=== PATIENT | female | born 1970 | race Caucasian/White ===

== ENCOUNTER 2016-09-13 20:42 | Inpatient (IN) | payer OTHER ==
[~2016-09-13] VITALS: Ht 167.6 cm; Wt 89.8 kg
[2016-09-13 20:55] VITALS: BP 149/90
--- NOTE | 2016-09-13 21:07 | NUR ---
45 Y/O F BIBA W/C/O CHEST PAIN WHICH RADIATES TO BACK AND L ARM X TODAY AT 1800. PER EMT ASPIRING 325MG AND NITRO 0.4 MG GIVEN SUBLINGUAL IN ROUTE X 1 AT 2034.DENIES ANY SOB. PT STATES HER PAIN IMPROVED TO A 2/10. MED HTN. NO S/S OF DISTRESS NOTED. PT ON INDUSTRIAL TRUCK OPERATOR, VSS. ER MD MADE AWARE.
--- NOTE | 2016-09-13 21:09 | NUR ---
Francesca khoury in ED - 09/14/16 at 0017 by MEDJANIE BIBA TO ER BED 4
[2016-09-13] MEDS ORDERED: NITROGLYCERIN 2% 1 GM PKT TP ONE (21:25)
[2016-09-13 21:58] LABS: BASOPHILS # (AUTO) 0.2 K/uL (0.00-0.22); BASOPHILS % (AUTO) 1.5 % (0.0-2.0); EOSINOPHILS # (AUTO) 0.3 K/uL (0-0.4); EOSINOPHILS % (AUTO) 2.4 % (0.0-4.0); HEMATOCRIT 37.5 % (36-48); MEAN CORPUSCULAR HEMOGLOBIN 26 pg (27-31); MEAN CORPUSCULAR HGB CONC 32 g/dL (33-37); MEAN CORPUSCULAR VOLUME 81 fL (80-94); MONOCYTES # (AUTO) 0.9 K/uL (0.8-1.0); MONOCYTES % (AUTO) 7.5 % (1.7-9.3); NEUTROPHILS # (AUTO) 8.2 K/uL (1.8-7.7); NEUTROPHILS % (AUTO) 64.6 % (42.2-75.2); PLATELET COUNT (AUTO) 270 K/uL (140-450); RED BLOOD CELL COUNT(AUTO) 4.65 MIL/uL (4.20-5.40); RED CELL DISTRIBUTION WIDTH 13.9 % (11.6-13.7); WHITE BLOOD COUNT (AUTO) 12.6 K/uL (4.8-10.8)
[2016-09-13 22:07] LABS: ANION GAP 12.1 (8-16); CALCIUM 8.5 mg/dL (8.5-10.1); CARBON DIOXIDE 26.4 mmol/L (21-32); CREATININE 0.6 mg/dL (0.6-1.3); POTASSIUM 3.5 mmol/L (3.5-5.1)
[2016-09-13 22:12] LABS: ALBUMIN 3.6 g/dL (3.4-5.0); TOTAL BILIRUBIN 0.2 mg/dL (0.0-1.0); TOTAL PROTEIN, SERUM 7.3 g/dL (6.4-8.2)
[2016-09-13 22:17] LABS: CHOL/HDL RATIO 3.1 (1-4.5)
[2016-09-13 22:21] LABS: CREATINE KINASE MB 1.9 ng/mL (0-3.6); CREATINE KINASE, TOTAL 139 U/L (26-192); TROPONIN I < 0.017 ng/mL (0.00-0.06)
[2016-09-13] MEDS ORDERED: ACETAMINOPHEN 325 MG TAB PO PRN (23:10)
[2016-09-13] MEDS ORDERED: ONDANSETRON 4 MG/2 ML VIAL IVP PRN (23:10)
[2016-09-13] MEDS ORDERED: ZOLPIDEM 5 MG TAB PO PRN (23:10)
[2016-09-13] MEDS ORDERED: NITROGLYCERIN 0.4 MG TAB SL PRN (23:10)
[2016-09-13] MEDS ORDERED: LORazepam 1 MG TAB PO PRN (23:10)
--- NOTE | 2016-09-13 23:48 | NUR ---
Patient will be admitted to care of DR QUICK. Admited to TELEMETRY. Will go to [id number]. Belongings list completed. Report to KONRAD SANTILLAN
[2016-09-14] MEDS ORDERED: MORPHINE SULFATE 4 MG/ML SYR IVP ONE
--- NOTE | 2016-09-14 00:10 | NUR ---
PT TRASFERRED TO TELEMETRY BY REHANA RN, AND CAMPBELL EMT. NO S/S OF DISTRESS NOTED ON TRASFER.
--- NOTE | 2016-09-14 00:20 | NUR ---
ADMITTED THIS 45 YEAR OLD FEMALE FROM ER PER TRACIE WITH CC OF CHEST PAIN, AMBULATORY TO BED WITH STEADY GAIT, VITAL SIGNS STABLE, DENIES CHEST PAIN BUT WITH TOLERABLE HEADACHE 4/10, NO SOB NOTED, ASSESSMENT DONE, ORIENTED TO ROOM AND CALL LIGHT, SKIN IS INTACT, PLAN OF CARE DISCUSSED WITH PT, SAFETY MEASURES IN PLACE, CALL LIGHT WITHIN REACH.
[2016-09-14 00:30] VITALS: BP 127/76
--- NOTE | 2016-09-14 01:00 | NUR ---
SANDWICH PROVIDED, TOLERATED WELL, ALL NEEDS ATTENDED.
[2016-09-14] MEDS: MORPHINE SULFATE 2 MG/ML SYR IVP PRN ×2 (03:56→06:39)
[2016-09-14 04:00] VITALS: BP 125/69
--- NOTE | 2016-09-14 04:00 | NUR ---
PT COMPLAINING OF CHEST PAIN, VITAL SIGNS STABLE, MEDICATED PRN FOR PAIN, MONITORED CLOSELY.
[2016-09-14 06:19] LABS: BASOPHILS # (AUTO) 0.1 K/uL (0.00-0.22); BASOPHILS % (AUTO) 0.7 % (0.0-2.0); EOSINOPHILS # (AUTO) 0.2 K/uL (0-0.4); EOSINOPHILS % (AUTO) 1.5 % (0.0-4.0); HEMATOCRIT 37.1 % (36-48); HEMOGLOBIN 12.4 g/dL (12.0-16.0); LYMPHOCYTES # (AUTO) 2.2 K/uL (2.5-16.5); LYMPHOCYTES % (AUTO) 21.8 % (20.5-51.1); MEAN CORPUSCULAR HEMOGLOBIN 27 pg (27-31); MEAN CORPUSCULAR HGB CONC 33 g/dL (33-37); MEAN CORPUSCULAR VOLUME 80 fL (80-94); MONOCYTES # (AUTO) 0.9 K/uL (0.8-1.0); MONOCYTES % (AUTO) 9.4 % (1.7-9.3); NEUTROPHILS # (AUTO) 6.6 K/uL (1.8-7.7); NEUTROPHILS % (AUTO) 66.6 % (42.2-75.2); PLATELET COUNT (AUTO) 268 K/uL (140-450); RED BLOOD CELL COUNT(AUTO) 4.65 MIL/uL (4.20-5.40)
[2016-09-14 06:37] LABS: ANION GAP 12.2 (8-16); CALCIUM 8.2 mg/dL (8.5-10.1); CARBON DIOXIDE 26.2 mmol/L (21-32); CREATININE 0.6 mg/dL (0.6-1.3); POTASSIUM 3.4 mmol/L (3.5-5.1)
--- NOTE | 2016-09-14 06:45 | NUR ---
MEDICATED FOR PAIN PRN, NO SOB NOTED, FOR ECHOCARDIOGRAM TODAY, AWAITING DR Hazel STYLES FOR CARDIAC CONSULT, PT MONITORED CLOSELY.
--- NOTE | 2016-09-14 07:10 | NUR ---
PT SLEEPING, EASILY AROUSABLE, NO SIGNS OF DISTRESS, REPORT GIVEN TO SANTI RN FOR CONTINUITY OF CARE.
--- NOTE | 2016-09-14 07:10 | NUR ---
RECEIVED REPORT FROM NIGHT NURSE. PT IS AAOX4, ON ROOM AIR, IV TO LEFT HAND 20G SALINE LOCK. PATENT AND INTACT. SKIN INTACT, PT STATES NO CHEST PAIN AT THIS TIME. INITIAL ASSESSMENT COMPLETED, REVIEWED PLAN OF CARE WITH PT, PT VERBALIZED UNDERSTANDING, ALL SAFETY PRECAUTIONS MET, ALL NEEDS MET. CALL LIGHT WITHIN REACH. WILL CONTINUE TO MONITOR.
[2016-09-14 07:17] LABS: CREATINE KINASE MB 1.5 ng/mL (0-3.6)
[2016-09-14 08:00] VITALS: BP 134/84
--- NOTE | 2016-09-14 08:33 | NUR ---
PATIENT HAS BEEN SCREENED AND CATEGORIZED MODERATE NUTRITION RISK. PATIENT WILL BE SEEN WITHIN 3-5 DAYS OF ADMISSION. 09/15/16-09/17/[address]
[2016-09-14] MEDS: ASPIRIN 81 MG TAB.CHEW PO SCH (09:50)
[2016-09-14] MEDS: METOPROLOL 25 MG TAB PO SCH ×2 (09:51→20:49)
--- NOTE | 2016-09-14 09:51 | NUR ---
DUE MEDICATIONS GIVEN, PT TOLERATED WELL. PT CURRENTLY EATING BREAKFAST, ALL NEEDS MET. CALL LIGHT WITHIN REACH. WILL CONTINUE TO MONITOR.
[2016-09-14] MEDS: ENOXAPARIN 40 MG/0.4 ML SYR SUBQ SCH (09:54)
[2016-09-14 11:59] VITALS: BP 140/82
[2016-09-14] MEDS ORDERED: POTASSIUM CHLORIDE 10 MEQ TABER PO SCH (12:25)
[2016-09-14 13:19] LABS: CREATINE KINASE MB 1.1 ng/mL (0-3.6)
--- NOTE | 2016-09-14 14:20 | NUR ---
CHECKED IN ON PT, PT CURRENTLY RESTING IN BED ALL NEEDS MET. CALL LIGHT WITHIN REACH. WILL CONTINUE TO MONITOR.
--- NOTE | 2016-09-14 14:37 | NUR ---
FAXED INITIAL REVIEW TO [facility] [phone] PHONE JOHNSON [phone]
[2016-09-14 16:00] VITALS: BP 131/96
[2016-09-14] MEDS: CYCLOBENZAPRINE 10 MG TAB PO SCH (17:15)
--- NOTE | 2016-09-14 17:15 | NUR ---
DUE MEDICATIONS GIVEN, PT CURRENTLY SIDING AT BEDSIDE. ALL NEEDS MET. CALL LIGHT WITHIN REACH.
--- NOTE | 2016-09-14 19:27 | NUR ---
ENDORSED PLAN OF CARE TO NIGHT NURSE,PT IN STABLE CONDITION.
--- NOTE | 2016-09-14 19:30 | NUR ---
RECEIVED PT AWAKE SITTING ON SIDE OF BED, DENIES ANY CHEST PAIN OR SOB, WITH OCCASIONAL BACK AND SHOULDER WHEN MOVING, VITAL SIGNS TAKEN, BP SLIGHTLY ELEVATED, WILL GIVE DUE BP MEDICATION, POC DISCUSSED, CALL LIGHT WITHIN REACH.
[2016-09-14 20:00] VITALS: BP 139/95
[2016-09-14] MEDS: NAPROXEN 500 MG TAB PO SCH (20:49)
--- NOTE | 2016-09-14 20:50 | NUR ---
DUE MEDICATIONS ADMINISTERED, EDUCATION PROVIDED, ALL NEEDS ATTENDED.
[2016-09-14] MEDS ORDERED: SIMVASTATIN 20 MG TAB PO SCH (21:00)
--- NOTE | 2016-09-14 22:30 | NUR ---
ROUNDED ON PT, SLEEPING, NO SIGNS OF DISTRESS, MONITORED CLOSELY.
[2016-09-15] VITALS: BP 133/88
--- NOTE | 2016-09-15 | NUR ---
PT SLEEPING, EASILY AROUSABLE, DENIES CHEST PAIN, VITAL SIGNS STABLE, CONTINUE TO MONITOR CLOSELY.
[2016-09-15 04:00] VITALS: BP 117/70
--- NOTE | 2016-09-15 04:00 | NUR ---
PT SLEEPING, EASILY AROUSABLE, VITAL SIGNS STABLE, SB ON TELE, ASYMPTOMATIC, DENIES PAIN, MONITORED CLOSELY.
--- NOTE | 2016-09-15 07:10 | NUR ---
RECEIVED REPORT FROM NIGHT NURSE. PT IS AAOX4, ON ROOM AIR, IV TO LEFT HAND 20G SALINE LOCK. PATENT AND INTACT. SKIN INTACT, PT STATES NO CHEST PAIN OR SOB AT THIS TIME. INITIAL ASSESSMENT COMPLETED, REVIEWED PLAN OF CARE WITH PT, PT VERBALIZED UNDERSTANDING, ALL SAFETY PRECAUTIONS MET, ALL NEEDS MET. CALL LIGHT WITHIN REACH. WILL CONTINUE TO MONITOR.
--- NOTE | 2016-09-15 07:20 | NUR ---
PT AWAKE, NO DISTRESS NOTED, REPORT GIVEN TO KONRAD HANCOCK FOR CONTINUITY OF CARE.
[2016-09-15 07:57] VITALS: BP 146/83
[2016-09-15] MEDS: ASPIRIN 81 MG TAB.CHEW PO SCH (08:29)
[2016-09-15] MEDS: NAPROXEN 500 MG TAB PO SCH (08:29)
[2016-09-15] MEDS: CYCLOBENZAPRINE 10 MG TAB PO SCH ×2 (08:29→12:19)
[2016-09-15] MEDS: METOPROLOL 25 MG TAB PO SCH (08:29)
[2016-09-15] MEDS: ENOXAPARIN 40 MG/0.4 ML SYR SUBQ SCH (08:34)
--- NOTE | 2016-09-15 08:34 | NUR ---
DUE MEDICATIONS GIVEN. ALL NEEDS MET.. CALL LIGHT WITHIN REACH. WILL CONTINUE TO MONITOR.
[2016-09-15 12:00] VITALS: BP 140/75
--- NOTE | 2016-09-15 12:19 | NUR ---
DUE MEDICATIONS GIVEN. PT CURRENTLY RESTING IN BED. ALL NEEDS MET CALL LIGHT WITHIN REACH. WILL CONTINUE TO MONITOR.
--- NOTE | 2016-09-15 12:53 | NUR ---
DISCUSSED DISCHARGE PLAN WIT PT, PT VERBALIZED UNDERSTANDING.
--- NOTE | 2016-09-15 13:12 | NUR ---
PT SIGNED ALL DISCHARGE PAPERWORK, IV REMOVED TIP INTACT, FOLLOW UP INFORMATION GIVEN, EDUCATION GIVEN, PT VERBALIZED UNDERSTANDING. ALL PERSONAL BELONGINGS WITH PT, AWAITING FOR SON TO PHOTOENGRAVER PT.
--- NOTE | 2016-09-15 13:27 | NUR ---
PT WAS WALKED OUT TO FRONT LOBBY IN STABLE CONDITION
== END 2016-09-15 13:28 | disposition home or self-care (01) | DRG 203 ==
LOC: MED 20:42 → MTU 23:17 → OBSVTOIN 09-14 12:24
PROVIDERS: ADMIT Hospitalist; ATTEND Hospitalist
DX: R07.89 Other chest pain (principal); I11.9 Hypertensive heart disease without heart failure; M62.838 Other muscle spasm
CPT/HCPCS: 96374; 99291; G0378; 36415; 71010; 80048; 80053; 82550; 82553; 83880; 84484; 85025; 85379; 87081; 93005; J1650; J2270

== ENCOUNTER 2017-08-20 03:36 | Emergency (ER) | payer OTHER ==
[~2017-08-20] VITALS: Ht 167.6 cm; Wt 83.9 kg
[2017-08-20 03:38] VITALS: BP 139/76
[2017-08-20] MEDS ORDERED: ACETAMINOPHEN 325 MG TAB PO ONE (04:00)
[2017-08-20] MEDS ORDERED: ONDANSETRON 4 MG ODT PO ONE (04:00)
[2017-08-20] MEDS ORDERED: ACETAMINOPHEN EXTRA STRENGTH 500 MG TAB ONE (04:12)
[2017-08-20 04:24] LABS: BASOPHILS # (AUTO) 0.1 K/uL (0.00-0.22); BASOPHILS % (AUTO) 0.9 % (0.0-2.0); EOSINOPHILS # (AUTO) 0.2 K/uL (0-0.4); EOSINOPHILS % (AUTO) 2.1 % (0.0-4.0); HEMATOCRIT 40.5 % (36-48); HEMOGLOBIN 13.4 g/dL (12.0-16.0); LYMPHOCYTES # (AUTO) 2.5 K/uL (2.5-16.5); LYMPHOCYTES % (AUTO) 28.8 % (20.5-51.1); MEAN CORPUSCULAR HEMOGLOBIN 26 pg (27-31); MEAN CORPUSCULAR HGB CONC 33 g/dL (33-37); MEAN CORPUSCULAR VOLUME 79.2 fL (80-94); MONOCYTES # (AUTO) 0.8 K/uL (0.8-1.0); MONOCYTES % (AUTO) 9.4 % (1.7-9.3); NEUTROPHILS # (AUTO) 5.2 K/uL (1.8-7.7); NEUTROPHILS % (AUTO) 58.8 % (42.2-75.2); PLATELET COUNT (AUTO) 278 K/uL (140-450); RED BLOOD CELL COUNT(AUTO) 5.12 MIL/uL (4.20-5.40); RED CELL DISTRIBUTION WIDTH 13.8 % (11.6-13.7); WHITE BLOOD COUNT (AUTO) 8.8 K/uL (4.8-10.8)
--- NOTE | 2017-08-20 04:42 | NUR ---
PT LAYING IN BED, LIGHTS DIMMED, COMFORT MEASURES MET AT THIS TIME.
[2017-08-20 04:44] LABS: ANION GAP 12.7 (8-16); CARBON DIOXIDE 27.5 mmol/L (21-32); CHLORIDE 102 mmol/L (98-107); CREATININE 0.7 mg/dL (0.6-1.3); GFR ARICAN-AMERICAN 116 mL/min (>90); GLUCOSE 101 mg/dL (74-106); POTASSIUM 3.2 mmol/L (3.5-5.1); SODIUM SERUM 139 mmol/L (136-145); UREA NITROGEN, BLOOD 13 mg/dL (7-18)
[2017-08-20 04:49] LABS: ALBUMIN 3.8 g/dL (3.4-5.0); ASPARTATE AMINOTRANSFERASE 25 U/L (15-37); LIPASE 131 U/L (73-393); PHOSPHORUS 4.8 mg/dL (2.5-4.9); TOTAL BILIRUBIN 0.3 mg/dL (0.0-1.0)
--- NOTE | 2017-08-20 04:50 | NUR ---
46Y/F C/O SUDDEN ONSET HEADACHE, W/ NAUSEA, DIZZINESS, AND "LEG CRAMPS". PT RATES HEADACHE 10/10, SHARP, NON RADIATING. PT AA&OX4, PERRL. PT STATES SHE TOOK HER BP MEDS WHEN SHE WOKE UP W/ PAIN. ABD IS ROUND, SOFT, NONTENDER, ACTIVE BS X4. PT IS LAYING IN BED, DAUGHTER AT BEDSIDE, ER MD AWARE OF PT STATUS.
--- NOTE | 2017-08-20 05:18 | NUR ---
PT TAKEN TO CT VIA WHEELCHAIR.
--- NOTE | 2017-08-20 05:32 | NUR ---
PT RETURNED FROM CT VIA WHEELCHAIR.
[2017-08-20] MEDS ORDERED: POTASSIUM CHLORIDE 10 MEQ TABER PO ONE (05:35)
[2017-08-20 05:37] LABS: BARBITURATE, URINE NEG. ng/ml (NEG <=200); BENZODIAZEPINE, URINE NEG. ng/mL (NEG <=200); CANNABINOID, URINE NEG. ng/mL (NEG <=50); COCAINE, URINE NEG. ng/mL (NEG <=300); OPIATE, URINE NEG. ng/mL (NEG <=2000); PHENCYCLIDINE SCREEN,URINE NEG. ng/mL (NEG <=25)
[2017-08-20 06:20] VITALS: BP 134/72
--- NOTE | 2017-08-20 06:21 | NUR ---
Patient discharged with v/s stable. Written and verbal after care instructions given and explained. Patient verbalized understanding. Ambulatory with steady gait. All questions addressed prior to discharge. Advised to follow up with PMD.
== END 2017-08-20 06:21 | disposition home or self-care (01) ==
LOC: MED 03:36
DX: R51 Headache (principal); R53.1 Weakness; E87.6 Hypokalemia; F19.90 Other psychoactive substance use, unspecified, uncomplicated; I10 Essential (primary) hypertension
CPT/HCPCS: 36415; 70450; 80053; 80305; 81025; 82550; 83690; 83735; 84100; 84484; 85025; 93005; 99285; G0482; S0119

== ENCOUNTER 2017-09-22 08:44 | Emergency (ER) | payer OTHER ==
[~2017-09-22] VITALS: Ht 167.6 cm; Wt 78.7 kg
[2017-09-22 08:52] VITALS: BP 134/89
[2017-09-22 09:52] LABS: APPEARANCE,URINE HAZY (CLEAR); BILIRUBIN,URINE NEGATIVE (NEGATIVE); BLOOD, URINE TRACE-I (NEGATIVE); COLOR,URINE YELLOW (YELLOW); LEUKOCYTE ESTERASE ,URINE NEGATIVE (NEGATIVE); NITRITE, URINE POSITIVE (NEGATIVE); UGLUCOSE NEGATIVE (NEGATIVE)
[2017-09-22 09:52] LABS: BASOPHILS # (AUTO) 0.1 K/uL (0.00-0.22); BASOPHILS % (AUTO) 1.1 % (0.0-2.0); EOSINOPHILS # (AUTO) 0.1 K/uL (0-0.4); EOSINOPHILS % (AUTO) 0.7 % (0.0-4.0); HEMOGLOBIN 13.7 g/dL (12.0-16.0); LYMPHOCYTES # (AUTO) 1.3 K/uL (2.5-16.5); LYMPHOCYTES % (AUTO) 16.5 % (20.5-51.1); MEAN CORPUSCULAR HEMOGLOBIN 26 pg (27-31); MEAN CORPUSCULAR HGB CONC 33 g/dL (33-37); MEAN CORPUSCULAR VOLUME 80.4 fL (80-94); MONOCYTES # (AUTO) 0.9 K/uL (0.8-1.0); MONOCYTES % (AUTO) 11.5 % (1.7-9.3); NEUTROPHILS # (AUTO) 5.7 K/uL (1.8-7.7); NEUTROPHILS % (AUTO) 70.2 % (42.2-75.2); PLATELET COUNT (AUTO) 325 K/uL (140-450); RED BLOOD CELL COUNT(AUTO) 5.23 MIL/uL (4.20-5.40); RED CELL DISTRIBUTION WIDTH 14.7 % (11.6-13.7); WHITE BLOOD COUNT (AUTO) 8.1 K/uL (4.8-10.8)
[2017-09-22 10:00] LABS: ANION GAP 11.2 (8-16); CARBON DIOXIDE 30.1 mmol/L (21-32); CHLORIDE 100 mmol/L (98-107); CREATININE 0.8 mg/dL (0.6-1.3); GFR ARICAN-AMERICAN 99 mL/min (>90); GLUCOSE 96 mg/dL (74-106); POTASSIUM 3.3 mmol/L (3.5-5.1); SODIUM SERUM 138 mmol/L (136-145); UREA NITROGEN, BLOOD 13 mg/dL (7-18)
[2017-09-22 10:03] LABS: BARBITURATE, URINE NEG. ng/ml (NEG <=200); BENZODIAZEPINE, URINE NEG. ng/mL (NEG <=200); CANNABINOID, URINE NEG. ng/mL (NEG <=50); COCAINE, URINE NEG. ng/mL (NEG <=300); OPIATE, URINE NEG. ng/mL (NEG <=2000); PHENCYCLIDINE SCREEN,URINE NEG. ng/mL (NEG <=25)
[2017-09-22 10:07] LABS: ACETAMINOPHEN < 0.5 ug/ml (10-30); ALBUMIN 4.4 g/dL (3.4-5.0); ASPARTATE AMINOTRANSFERASE 21 U/L (15-37); SALICYLATE < 2.8 mg/dL (2.8-20.0); TOTAL BILIRUBIN 0.6 mg/dL (0.0-1.0)
[2017-09-22 10:29] LABS: CKMB RELATIVE INDEX 2.3 (0.0-2.5); CREATINE KINASE MB 4.8 ng/mL (0-3.6)
[2017-09-22 10:31] LABS: RBC,URINE NONE SEEN /HPF (0-5); WBC,URINE 0-5 (RARE) /HPF (0-5)
[2017-09-22 11:23] VITALS: BP 131/78
== END 2017-09-22 11:24 | disposition home or self-care (01) ==
LOC: MED 08:44
DX: F32.9 Major depressive disorder, single episode, unspecified (principal); I10 Essential (primary) hypertension; F15.10 Other stimulant abuse, uncomplicated
CPT/HCPCS: 36415; 80053; 80305; 81001; 81025; 82550; 82553; 85025; 87086; 99284; G0480; G0482; 87186

== ENCOUNTER 2019-01-14 19:44 | Observation (INO) | payer OTHER ==
[~2019-01-14] VITALS: Ht 167.6 cm; Wt 68.0 kg
[2019-01-14 20:00] VITALS: BP 150/90
--- NOTE | 2019-01-14 20:03 | NUR ---
TO LOBBY A/W BED AMBULATORY
--- NOTE | 2019-01-14 20:21 | NUR ---
PT AMBULATED TO BED 11
--- NOTE | 2019-01-14 20:35 | NUR ---
PT C/O PELVIC PAIN SHARP 10 STARTED 1 DAY AGO. VAGINAL BLEEDING X1 DAY, 3 PADS/HR WHEN BLEEDING BEGAN, 1 PAD/HR SINCE. NAUSEA, DENIES VOMITING AND DIARRHEA. DENIES HEADACHE. PT C/O LT SHOULDER PAIN. STATES SHE WENT TO URGENT CARE TODAY AND THEY TOLD HER SHE WAS W/ POSSIBLE TUBAL . LMP 12/23/18. RESPIRATIONS EVEN AND UNLABORED. LAYING IN BED, CALM. ABD ROUND, SOFT, TENDER TO PALP. BOWEL SOUNDS ACTIVE X4 QUADS. MEDHX: DENIES
[2019-01-14] MEDS ORDERED: MORPHINE SULFATE 4 MG/ML SYR IVP ONE (20:40)
[2019-01-14] MEDS ORDERED: ONDANSETRON 4 MG/2 ML VIAL IVP ONE (20:40)
[2019-01-14 20:45] LABS: BASOPHILS # (AUTO) 0.1 K/uL (0.00-0.22); BASOPHILS % (AUTO) 0.7 % (0.0-2.0); EOSINOPHILS # (AUTO) 0.2 K/uL (0-0.4); EOSINOPHILS % (AUTO) 1.9 % (0.0-4.0); HEMATOCRIT 37.9 % (36-48); HEMOGLOBIN 12.7 g/dL (12.0-16.0); LYMPHOCYTES # (AUTO) 3.1 K/uL (2.5-16.5); LYMPHOCYTES % (AUTO) 28.9 % (20.5-51.1); MEAN CORPUSCULAR HEMOGLOBIN 27 pg (27-31); MEAN CORPUSCULAR HGB CONC 33 g/dL (33-37); MEAN CORPUSCULAR VOLUME 80.5 fL (80-94); MONOCYTES # (AUTO) 0.7 K/uL (0.8-1.0); MONOCYTES % (AUTO) 6.9 % (1.7-9.3); NEUTROPHILS # (AUTO) 6.5 K/uL (1.8-7.7); NEUTROPHILS % (AUTO) 61.6 % (42.2-75.2); PLATELET COUNT (AUTO) 323 K/uL (140-450); RED BLOOD CELL COUNT(AUTO) 4.71 MIL/uL (4.20-5.40); RED CELL DISTRIBUTION WIDTH 14.1 % (11.6-13.7); WHITE BLOOD COUNT (AUTO) 10.6 K/uL (4.8-10.8)
--- NOTE | 2019-01-14 21:08 | NUR ---
ultrasound at bedside
[2019-01-14 21:09] LABS: BILIRUBIN,URINE NEGATIVE (NEGATIVE); BLOOD, URINE 3+ (NEGATIVE); LEUKOCYTE ESTERASE ,URINE 1+ (NEGATIVE); NITRITE, URINE NEGATIVE (NEGATIVE); PH,URINE 5.5 (5.0-9.0); UGLUCOSE NEGATIVE (NEGATIVE)
[2019-01-14 21:24] LABS: ALBUMIN 3.7 g/dL (3.4-5.0); CARBON DIOXIDE 27.7 mmol/L (21-32); CREATININE 0.7 mg/dL (0.6-1.3); TOTAL BILIRUBIN 0.2 mg/dL (0.0-1.0)
[2019-01-14 21:25] LABS: APPEARANCE,URINE HAZY (CLEAR); COLOR,URINE PINK (YELLOW)
[2019-01-14 21:30] LABS: RBC,URINE 11-20 (MOD) /HPF (0-5)
[2019-01-14 21:31] LABS: WBC,URINE 0-5 /HPF (0-5)
[2019-01-14 21:36] LABS: POTASSIUM 2.7 mmol/L (3.5-5.1)
[2019-01-14] MEDS ORDERED: POTASSIUM CHLORIDE 10 MEQ TABER PO ONE (21:40)
--- NOTE | 2019-01-14 22:45 | NUR ---
PT RESTING IN BED WITH EYES CLOSED. VSS AT THIS TIME. NO FURTHER COMPLAINTS
[2019-01-14] MEDS ORDERED: ONDANSETRON 4 MG/2 ML VIAL IVP PRN (22:50)
[2019-01-14] MEDS ORDERED: ACETAMINOPHEN 325 MG TAB PO PRN (22:50)
[2019-01-14] MEDS ORDERED: MORPHINE SULFATE 4 MG/ML SYR IVP PRN (22:50)
[2019-01-14] MEDS ORDERED: HYDROcodone/APAP 5/325 MG 1 TAB TAB PO PRN (22:50)
[2019-01-14] MEDS ORDERED: ALBUTEROL 0.083% 2.5 MG/3 ML NEBU INH PRN (22:50)
[2019-01-14] MEDS: NACL 0.9% 1,000 ML IV SCH (23:00)
--- NOTE | 2019-01-14 23:29 | NUR ---
Patient will be admitted to care of DR JOHNSON. Admited to MED/SURG. Will go to room 105A. Belongings list completed. Report to IAN GANT.
--- NOTE | 2019-01-14 23:35 | NUR ---
Admitted from ER TO [facility] FOR OBSERVATION, with chief complaint of LLQ pain and vaginal bleed , 48 y/o ,Female, Cooperative, AWAKE, A/OX4. RESPIRATION EVEN AND UNLABORED. LUNGS CLEAR ON BILATERAL AUSCULTATION, ABDOMEN SOFT WITH POSITIVE BOWEL SOUNDS ON ALL QUADRANTS. INDEPENDENT, ABLE TO AMBULATE BY HERSELF. SALINE LOCK AT THE LEFT AC G 20, PATENT AND INTACT. ABDOMINAL PAIN STARTED AT 1700 TODAY. LEFT SIDE OF ABDOMEN DESCRIBED THROBBING PAIN AT THE START THEN WENT SHARP, 9/10. WAS MEDICATED WITH MORPHINE IN ER. , 1 , 1 TERMINATED , 1 . LAST LMP IS DEC 23, 2018. TODAY SHE HAD BLEEDING, 3 PADS SATURATED IN AN HOUR BEFORE ADMISSION. STATED AT THIS TIME SHE HAS MINIMAL BLEEDING. HEAD TO TOE ASSESSMENT DONE WITH KONRAD MODI. PATIENT WITH SCABS FROM INSECT BITES ON BILATERAL LOWER EXTREMITIES. SKIN INTACT. oriented to call light, bed, phone,television, bathroom, smoking policy,visiting hours, procedures, ID bracelet on. Belongings list checked.
[2019-01-14 23:45] VITALS: BP 116/72
--- NOTE | 2019-01-15 00:30 | NUR ---
STARTED IV FLUIDS OF NS AT 75 ML/HR ORDERED.
[2019-01-15] MEDS: NACL 0.9% 1,000 ML IV SCH ×2 (00:41→12:27)
--- NOTE | 2019-01-15 04:00 | NUR ---
AWAKE, AMBULATED TO BR. DOES HER AM CARE. STATED MINIMAL AMOUNT OF BLOOD IN HER PAD. DENIES PAIN 0/10.
[2019-01-15 06:21] LABS: ANION GAP 9.4 (8-16); CARBON DIOXIDE 29.4 mmol/L (21-32); CREATININE 0.7 mg/dL (0.6-1.3)
[2019-01-15 06:24] LABS: MAGNESIUM 1.9 mg/dL (1.8-2.4); PHOSPHORUS 4.4 mg/dL (2.5-4.9)
[2019-01-15 06:35] LABS: POTASSIUM 2.8 mmol/L (3.5-5.1)
--- NOTE | 2019-01-15 06:35 | NUR ---
K LEVEL - 2.8, DR. HARTMAN ORDERED 40 MEQ KCL PO Q 4 HOURS X TWO DOSES.
[2019-01-15 06:55] LABS: BASOPHILS # (AUTO) 0.1 K/uL (0.00-0.22); BASOPHILS % (AUTO) 0.8 % (0.0-2.0); EOSINOPHILS # (AUTO) 0.2 K/uL (0-0.4); EOSINOPHILS % (AUTO) 2.6 % (0.0-4.0); HEMATOCRIT 35.9 % (36-48); HEMOGLOBIN 11.8 g/dL (12.0-16.0); LYMPHOCYTES # (AUTO) 2.9 K/uL (2.5-16.5); LYMPHOCYTES % (AUTO) 35.6 % (20.5-51.1); MEAN CORPUSCULAR HEMOGLOBIN 27 pg (27-31); MEAN CORPUSCULAR HGB CONC 33 g/dL (33-37); MEAN CORPUSCULAR VOLUME 81.4 fL (80-94); MONOCYTES # (AUTO) 0.7 K/uL (0.8-1.0); MONOCYTES % (AUTO) 9.1 % (1.7-9.3); NEUTROPHILS # (AUTO) 4.2 K/uL (1.8-7.7); NEUTROPHILS % (AUTO) 51.9 % (42.2-75.2); PLATELET COUNT (AUTO) 295 K/uL (140-450); RED BLOOD CELL COUNT(AUTO) 4.41 MIL/uL (4.20-5.40); RED CELL DISTRIBUTION WIDTH 14.2 % (11.6-13.7)
--- NOTE | 2019-01-15 07:20 | NUR ---
ENDORSED TO AM SHIFT NURSE FOR CONTINUITY OF CARE.
--- NOTE | 2019-01-15 07:30 | NUR ---
Pt awake a/o able to communicate needs. Pt denies pain, states vaginal bleeding has decreased since admission. Pt continues to recieve IVF to peripheral IV at LAC, tolerating well, no s/s infiltration noted. Pt educated regarding potassium use, supplement and side effects, verbalized understanding. No s/s of acute distress noted. Call light and personal items within easy reach. Will continue to monitor.
[2019-01-15 08:00] VITALS: BP 122/65
[2019-01-15] MEDS: POTASSIUM CHLORIDE 10 MEQ TABER PO SCH ×2 (08:44→11:06)
--- NOTE | 2019-01-15 08:59 | NUR ---
PATIENT HAS BEEN SCREENED AND CATEGORIZED LOW NUTRITION RISK. PATIENT WILL BE SEEN WITHIN 7 DAYS OF ADMISSION. 01/21/[address]
--- NOTE | 2019-01-15 09:30 | NUR ---
Pt resting at this time. Dr Jhaveri at bedside to round on Pt.denies pain, no s/s of acute distress noted. Call light and personal items within easy reach. Will continue to monitor.
--- NOTE | 2019-01-15 11:30 | NUR ---
Pt ambulating in zeng, ivf continues to infuse, huy well. Pt denies pain, NV, SOB, dizziness; no s/s of acute distress noted. Will continue to monitor.
--- NOTE | 2019-01-15 11:44 | NUR ---
CONTACTED PATIENT'S PCP [facility] AT [phone] REGARDING POST DISCHARGE APPOINTMENT, ABLE TO SPEAK TO EFRA. SHE PROVIDED ME WITH JAN 28, 2019 AT 1550 PM. ADDRESS OF CLINIC IS [address] [place] [id number]. WILL PROVIDE COPY TO HE PATIENT. Addendum: 01/15/19 at 1608 by Almaz Umana CM COPY OF THE PDA PROVIDED TO THE PATIENT.
--- NOTE | 2019-01-15 13:30 | NUR ---
Pt resting at this time, appears comfortable, no s/s of acute distress noted. Call light and personal items within easy reach. Will continue to monitor.
--- NOTE | 2019-01-15 15:30 | NUR ---
Pt remains awake a/o and able to communicate needs, currently having a conversation on her cell phone. Pt denies pain, sob or other distress. No s/s of acute distress noted at this time. Call light and personal items within easy reach. Will continue to monitor.
[2019-01-15 16:00] VITALS: BP 126/73
[2019-01-15 16:12] VITALS: BP 126/73
--- NOTE | 2019-01-15 18:30 | NUR ---
Pt remains awake a/o and able to communicate needs. Pt denies pain, sob or other distress. No s/s of acute distress noted at this time. Peripheral IV removed, tolerated well, cath intact. Pt provided dc instructions education and follow up information, pt verbalized understanding. Pt discharged home w all belongings.
== END 2019-01-15 18:30 | disposition home or self-care (01) ==
LOC: MED 19:44 → MTU 22:49
PROVIDERS: ADMIT Internal Medicine; ATTEND Internal Medicine
DX: R10.32 Left lower quadrant pain (principal); E87.6 Hypokalemia; E66.9 Obesity, unspecified; I10 Essential (primary) hypertension; R11.0 Nausea; I20.9 Angina pectoris, unspecified
CPT/HCPCS: 36415; 76830; 80048; 80053; 81001; 83735; 84100; 84702; 85025; 86900; 86901; 87081; 87086; 94760; 96374; 96375; 99285; G0378; J2270; J2405; Q0092

== ENCOUNTER 2019-01-16 08:44 | Emergency (ER) | payer OTHER | END 2019-01-16 09:34 | disposition left against medical advice (07) | LOC: MED 08:44 | DX: Z53.21 Procedure and treatment not carried out due to patient leaving prior to being seen by health care provider (principal) ==

== ENCOUNTER 2019-01-18 15:19 | Emergency (ER) | payer OTHER ==
[~2019-01-18] VITALS: Ht 167.6 cm; Wt 83.5 kg
--- NOTE | 2019-01-18 15:19 | NUR ---
PT PLACED IN BED 12.
[2019-01-18 15:25] VITALS: BP 120/84
--- NOTE | 2019-01-18 15:41 | NUR ---
BIBA W C/O SUDDEN ONSET LUQ PAIN RADIATING TO BILAT LOWER BACK 12/08 AND STABBING STARTING TODAY. PT STATES SHE WAS RECENTLY AT [facility] FOR A SIMILAR PAIN, HOWEVER IT WAS IN THE LLQ. PT STATES SHE WAS TOLD SHE HAD AN ECTOPIC THE LAST TIME SHE WAS HERE. HCG AT THIS TIME IS NEGATIVE. PT REPORTS NAUSEA, DENIES VOMITING/DIARRHEA, FEVER. PT PLACED ON BEDSIDE SIGN LANGUAGE TEACHER, AND IN GOWN. BED IN LOW POSITION, SIDE RAIL UP X1
[2019-01-18] MEDS ORDERED: NACL 0.9% 1,000 ML IV ONE (16:35)
[2019-01-18] MEDS ORDERED: MORPHINE SULFATE 10 MG/ML VIAL IVP ONE (16:35)
[2019-01-18 16:45] LABS: APPEARANCE,URINE HAZY (CLEAR); BILIRUBIN,URINE NEGATIVE (NEGATIVE); BLOOD, URINE 1+ (NEGATIVE); COLOR,URINE YELLOW (YELLOW); LEUKOCYTE ESTERASE ,URINE NEGATIVE (NEGATIVE); NITRITE, URINE POSITIVE (NEGATIVE); PH,URINE 7.5 (5.0-9.0); UGLUCOSE NEGATIVE (NEGATIVE)
--- NOTE | 2019-01-18 16:48 | NUR ---
PT TO CT SCAN VIA [facility].
--- NOTE | 2019-01-18 17:00 | NUR ---
CONFIRMED DOSAGE OF 8MG MORPHINE IVP WITH DR. MCCLURE
[2019-01-18 17:06] LABS: RBC,URINE 0-5 /HPF (0-5); WBC,URINE 0-5 /HPF (0-5)
[2019-01-18] MEDS ORDERED: ONDANSETRON 4 MG/2 ML VIAL ONE (17:14)
[2019-01-18] MEDS ORDERED: ONDANSETRON 4 MG/2 ML VIAL IVP ONE (17:20)
--- NOTE | 2019-01-18 18:30 | NUR ---
PT ASLEEP IN BED, AROUSABLE TO VERBAL STIMULI. DENIES PAIN AT THIS TIME
--- NOTE | 2019-01-18 18:38 | NUR ---
CALLED LAB REGARDING QUANTATIVE HCG, PER GEOVANY SHE WILL DO IT NOW
--- NOTE | 2019-01-18 19:15 | NUR ---
RECEIVED REPORT FROM BEATRICE, TRANSFER OF CARE AT THIS TIME.
[2019-01-18] MEDS ORDERED: cefTRIAXone 1,000 MG VIAL ONE (19:17)
[2019-01-18 19:32] LABS: BASOPHILS % (AUTO) 0.5 % (0.0-2.0); EOSINOPHILS # (AUTO) 0.2 K/uL (0-0.4); EOSINOPHILS % (AUTO) 2.6 % (0.0-4.0); HEMATOCRIT 37.2 % (36-48); LYMPHOCYTES # (AUTO) 2.5 K/uL (2.5-16.5); MEAN CORPUSCULAR HEMOGLOBIN 27 pg (27-31); MEAN CORPUSCULAR HGB CONC 32 g/dL (33-37); MEAN CORPUSCULAR VOLUME 82.5 fL (80-94); MONOCYTES # (AUTO) 0.5 K/uL (0.8-1.0); MONOCYTES % (AUTO) 7.3 % (1.7-9.3); NEUTROPHILS # (AUTO) 4.2 K/uL (1.8-7.7); NEUTROPHILS % (AUTO) 56.6 % (42.2-75.2); PLATELET COUNT (AUTO) 311 K/uL (140-450); RED BLOOD CELL COUNT(AUTO) 4.51 MIL/uL (4.20-5.40); RED CELL DISTRIBUTION WIDTH 14.4 % (11.6-13.7); WHITE BLOOD COUNT (AUTO) 7.5 K/uL (4.8-10.8)
[2019-01-18 19:44] LABS: ANION GAP 8.1 (8-16); CARBON DIOXIDE 29.5 mmol/L (21-32); CREATININE 0.5 mg/dL (0.6-1.3); POTASSIUM 3.6 mmol/L (3.5-5.1)
[2019-01-18 19:50] LABS: ALBUMIN 3.3 g/dL (3.4-5.0); TOTAL BILIRUBIN 0.2 mg/dL (0.0-1.0)
[2019-01-18 20:19] VITALS: BP 122/66
--- NOTE | 2019-01-18 20:19 | NUR ---
Patient discharged with v/s stable. Written and verbal after care instructions given and explained. Patient alert, oriented and verbalized understanding of instructions. Ambulatory with steady gait. All questions addressed prior to discharge. ID band removed. Patient advised to follow up with PMD. Rx of KEFLEX AND MOTRIN AND ACETAMINOPHEN WAS given. Patient educated on indication of medication including possible reaction and side effects. Opportunity to ask questions provided and answered. PT STATED HER PAIN WAS 2/10 PRIOR TO D/C
== END 2019-01-18 20:19 | disposition home or self-care (01) ==
LOC: MED 15:19
DX: O03.9 Complete or unspecified spontaneous abortion without complication (principal); N12 Tubulo-interstitial nephritis, not specified as acute or chronic; I10 Essential (primary) hypertension
CPT/HCPCS: 36415; 74176; 80053; 81001; 81025; 84702; 85025; 87086; 96361; 96365; 96375; 99284; J0696; J2270; J2405

== ENCOUNTER 2019-02-06 19:56 | Emergency (ER) | payer OTHER ==
--- NOTE | 2019-02-06 21:23 | NUR ---
CALLED FROM LOBBY. NO RESPONSE.
--- NOTE | 2019-02-06 21:37 | NUR ---
PT CALLED FROM LOBBY. NO RESPONSE.
--- NOTE | 2019-02-06 21:38 | NUR ---
PATIENT LEFT WITHOUT BEING SEEN BY DR. ZAZUETA. NO FURTHER CARE PROVIDED FOR PATIENT.
== END 2019-02-06 21:23 | disposition left against medical advice (07) ==
LOC: MED 19:56
DX: Z53.21 Procedure and treatment not carried out due to patient leaving prior to being seen by health care provider (principal)

== ENCOUNTER 2019-02-07 01:23 | Emergency (ER) | payer OTHER ==
[~2019-02-07] VITALS: Ht 167.6 cm; Wt 83.5 kg
[2019-02-07 01:39] VITALS: BP 144/80
--- NOTE | 2019-02-07 01:41 | NUR ---
PT AMBULATED TO LOBBY. PROVIDING URINE.
[2019-02-07] MEDS ORDERED: NACL 0.9% 1,000 ML IV SCH (02:07)
[2019-02-07] MEDS ORDERED: KETOROLAC 30 MG/ML VIAL IVP ONE (02:10)
[2019-02-07] MEDS ORDERED: ONDANSETRON 4 MG/2 ML VIAL IVP ONE (02:10)
[2019-02-07 02:21] LABS: BASOPHILS % (AUTO) 0.4 % (0.0-2.0); EOSINOPHILS # (AUTO) 0.2 K/uL (0-0.4); EOSINOPHILS % (AUTO) 2.8 % (0.0-4.0); HEMATOCRIT 36.9 % (36-48); HEMOGLOBIN 12.1 g/dL (12.0-16.0); LYMPHOCYTES # (AUTO) 2.5 K/uL (2.5-16.5); LYMPHOCYTES % (AUTO) 28.8 % (20.5-51.1); MEAN CORPUSCULAR HEMOGLOBIN 27 pg (27-31); MEAN CORPUSCULAR HGB CONC 33 g/dL (33-37); MEAN CORPUSCULAR VOLUME 81.5 fL (80-94); MONOCYTES # (AUTO) 0.6 K/uL (0.8-1.0); MONOCYTES % (AUTO) 6.9 % (1.7-9.3); NEUTROPHILS # (AUTO) 5.3 K/uL (1.8-7.7); NEUTROPHILS % (AUTO) 61.1 % (42.2-75.2); PLATELET COUNT (AUTO) 318 K/uL (140-450); RED BLOOD CELL COUNT(AUTO) 4.53 MIL/uL (4.20-5.40); RED CELL DISTRIBUTION WIDTH 13.8 % (11.6-13.7); WHITE BLOOD COUNT (AUTO) 8.7 K/uL (4.8-10.8)
[2019-02-07 02:31] LABS: APPEARANCE,URINE SL CLOUDY (CLEAR); BILIRUBIN,URINE NEGATIVE (NEGATIVE); BLOOD, URINE TRACE-I (NEGATIVE); COLOR,URINE YELLOW (YELLOW); LEUKOCYTE ESTERASE ,URINE TRACE (NEGATIVE); NITRITE, URINE NEGATIVE (NEGATIVE); UGLUCOSE NEGATIVE (NEGATIVE)
--- NOTE | 2019-02-07 02:41 | NUR ---
48 Y/O FEMALE C/O LUQ ABD PAIN X1 WEEK. STATES WORSE WHEN EATING. INTERMITTENT PAIN BUT WORSE AT THIS TIME. LEFT PAIN IS 10/10 ACUTE PAIN AND FACIAL GRIMACING IS NOTED UPON SLIGHT PALPATION. PAIN RADIATES TO THE LEFT FLANK. PATIENT STATES THAT SHE HAS NAUSEA AND VOMITING. ERMD MADE AWARE OF STATUS. PLACED ON SHANK SANDER. VSS. SIDE RAILSX2. PT.'S CHILDREN ARE AT BEDSIDE. HX: HTN; ECTOPIC RX: HYDROCHLOROTHIAZIDE
[2019-02-07 03:04] LABS: POTASSIUM 3.1 mmol/L (3.5-5.1)
[2019-02-07 03:05] LABS: ANION GAP 14.1 (8-16); CREATININE 0.6 mg/dL (0.6-1.3); TOTAL BILIRUBIN 0.2 mg/dL (0.0-1.0)
[2019-02-07 03:06] LABS: ALBUMIN 3.5 g/dL (3.4-5.0)
[2019-02-07 03:31] LABS: RBC,URINE 0-5 /HPF (0-5)
--- NOTE | 2019-02-07 04:07 | NUR ---
PT. IS SLEEPING AT THIS TIME. WILL CONTINUE TO MONITOR.
[2019-02-07] MEDS ORDERED: cefTRIAXone 1,000 MG VIAL ONE (04:10)
[2019-02-07 06:50] VITALS: BP 133/80
--- NOTE | 2019-02-07 06:50 | NUR ---
Patient discharged with v/s stable. Written and verbal after care instructions given and explained. Patient alert, oriented and verbalized understanding of instructions. Ambulatory with steady gait. All questions addressed prior to discharge. ID band removed. Patient advised to follow up with PMD. Rx of KEFLEX 500MG; ZOFRAN 4MG given. Patient educated on indication of medication including possible reaction and side effects. Opportunity to ask questions provided and answered.
== END 2019-02-07 06:50 | disposition home or self-care (01) ==
LOC: MED 01:25
DX: R10.12 Left upper quadrant pain (principal); R11.2 Nausea with vomiting, unspecified; I10 Essential (primary) hypertension; I20.9 Angina pectoris, unspecified
CPT/HCPCS: 36415; 80053; 81001; 81025; 82150; 83690; 85025; 87086; 96365; 96375; 99283; J0696; J1885; J2405; J7030; J7060

== ENCOUNTER 2019-06-09 16:48 | Emergency (ER) | payer OTHER ==
[~2019-06-09] VITALS: Ht 167.6 cm; Wt 81.6 kg
[2019-06-09 16:53] VITALS: BP 153/79
--- NOTE | 2019-06-09 17:01 | NUR ---
TO LOBBY. AWAITING BED IN ED.
--- NOTE | 2019-06-09 17:12 | NUR ---
PT AMB TO BED 9
--- NOTE | 2019-06-09 17:15 | NUR ---
48 Y/O F C/C LOWER ABDOMINAL PAIN 10/10 SHARP, RADIATING TO THE BACK, BURNING SENSATION WHEN URINATING. PER PT HX OF KIDNEY STONES. PT TAKEN TYLENOL WITH NO RELIEF. PT NKA. HX HTN. NO RX. PER PT NAUSEA/VOMITING X1 DAY, NO DIARRHEA. SIDE RAIL X1. FAMILY AT BEDSIDE.
[2019-06-09 17:26] LABS: APPEARANCE,URINE SL CLOUDY (CLEAR); BILIRUBIN,URINE NEGATIVE (NEGATIVE); BLOOD, URINE 2+ (NEGATIVE); COLOR,URINE YELLOW (YELLOW); LEUKOCYTE ESTERASE ,URINE 3+ (NEGATIVE); NITRITE, URINE POSITIVE (NEGATIVE); PH,URINE 7.5 (5.0-9.0); UGLUCOSE NEGATIVE (NEGATIVE)
[2019-06-09 17:45] LABS: RBC,URINE 0-5 /HPF (0-5); URINE AMORPHOUS URATE 2+ /HPF (None Seen); WBC,URINE TOO MANY TO COUNT /HPF (0-5)
[2019-06-09] MEDS: SULFAMETH/TRIMETH DS 800/160MG 1 TAB PO ONE (17:54)
[2019-06-09] MEDS: traMADol 50 MG TAB PO ONE (17:54)
[2019-06-09] MEDS: KETOROLAC 60 MG/2 ML VIAL IM ONE (17:54)
[2019-06-09 18:00] VITALS: BP 153/79
--- NOTE | 2019-06-09 18:00 | NUR ---
Patient discharged with v/s stable. Written and verbal after care instructions given and explained. Patient alert, oriented and verbalized understanding of instructions. Ambulatory with steady gait. All questions addressed prior to discharge. ID band removed. Patient advised to follow up with PMD. Rx of TRAMADOL,MOTRIN,BACTRIM given. Patient educated on indication of medication including possible reaction and side effects. Opportunity to ask questions provided and answered.
== END 2019-06-09 18:00 | disposition home or self-care (01) ==
LOC: MED 16:48
DX: N39.0 Urinary tract infection, site not specified (principal); M54.30 Sciatica, unspecified side; I11.0 Hypertensive heart disease with heart failure; Z87.442 Personal history of urinary calculi
CPT/HCPCS: 81001; 81025; 87086; 87186; 96372; 99283; J1885

== ENCOUNTER 2020-03-16 09:38 | Emergency (ER) | payer OTHER ==
[~2020-03-16] VITALS: Ht 167.6 cm; Wt 83.9 kg
[2020-03-16 09:43] VITALS: BP 159/86
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
[2020-03-16] MEDS ORDERED: KETOROLAC 60 MG/2 ML VIAL IM ONE (10:10)
--- NOTE | 2020-03-16 10:14 | NUR ---
[employer] [employer] CALLED AND THEY WILL SENT AN OFFICER FOR REPORT.
--- NOTE | 2020-03-16 10:15 | NUR ---
PT IS BEING TAKEN TO XRAY.
--- NOTE | 2020-03-16 11:34 | NUR ---
[place] [employer] Officers are at bedside.
[2020-03-16 12:22] VITALS: BP 141/78
== END 2020-03-16 12:22 | disposition home or self-care (01) ==
LOC: MED 09:38
DX: S13.4XXA Sprain of ligaments of cervical spine, initial encounter (principal); S00.83XA Contusion of other part of head, initial encounter; S20.219A Contusion of unspecified front wall of thorax, initial encounter; R45.6 Violent behavior; I10 Essential (primary) hypertension; F12.90 Cannabis use, unspecified, uncomplicated; Z98.890 Other specified postprocedural states; Y04.2XXA Assault by strike against or bumped into by another person, initial encounter; Y93.89 Activity, other specified; Y92.89 Other specified places as the place of occurrence of the external cause; Y99.8 Other external cause status
CPT/HCPCS: 71045; 72040; 96372; 99284; J1885

== ENCOUNTER 2021-09-29 21:42 | Emergency (ER) | payer OTHER ==
[~2021-09-29] VITALS: Ht 165.1 cm; Wt 85.7 kg
[2021-09-29 21:54] VITALS: BP 159/90
--- NOTE | 2021-09-29 23:58 | NUR ---
PATIENT LEFT WITHOUT BEING SEEN BY DR. ALBRECHT. NO FURTHER CARE PROVIDED FOR PATIENT.
--- NOTE | 2021-09-29 23:58 | NUR ---
CALLED PT FROM TRIAGE. NO RESPONSE.
--- NOTE | 2021-09-30 00:15 | NUR ---
SECOND ATTEMPT TO LOCATE PT. NO RESPONSE.
--- NOTE | 2021-09-30 00:40 | NUR ---
THIRD ATTEMPT TO LOCATE PATIENT. NO RESPONSE. PATIENT LEFT WITHOUT BEING SEEN BY DR. ALBRECHT. NO FURTHER CARE PROVIDED FOR PATIENT.
== END 2021-09-29 23:58 | disposition left against medical advice (07) ==
LOC: MED 21:42
DX: R25.2 Cramp and spasm (principal); Z53.21 Procedure and treatment not carried out due to patient leaving prior to being seen by health care provider; I10 Essential (primary) hypertension